=== PATIENT | female | born 1985 | race Caucasian/White ===

== ENCOUNTER → 2016-12-03 | Outpatient (CLI) | payer BC ==
[~2016-12-03] MED LIST: CHOL20009; CYNI1000 IM; PRENTAB26 PO
== END | disposition home or self-care (01) ==
LOC: C.PAPS 12:05
PROVIDERS: ATTEND Obstetrics & Gynecology
DX: Z01.419 Encounter for gynecological examination (general) (routine) without abnormal findings (principal)

== ENCOUNTER 2019-12-02 12:15 | Inpatient (IN) ==
[2019-12-02] MEDS ORDERED: LACTATED RINGER'S 1,000 ML IV PRN (12:25)
[2019-12-02] MEDS ORDERED: OXYTOCIN 30 UNITS/500 ML BAG IV PRN ×3 (12:25→17:53)
--- NOTE | 2019-12-02 12:33 | History & Physical Report ---
Date of Service December 02, 2019 Assessment & Plan (1) Prolonged , antepartum: -Patient in active labor -Tracing category 2 with accelerations and variability's -Patient desires an epidural -Anesthesia notified -Anticipate vaginal delivery History of Present Illness Chief Complaint: Labor check Primary Care Provider: NO PCP The patient is a 34-year-old 2 para 1 with an EDC of 24 November, at 41 weeks gestational age, who presents for labor check. Patient states the contractions began at approximately 1030 this morning. She denies rupture of membranes or vaginal bleeding. The patient has had a benign course. Her blood type is A+, antibody negative, rubella immune, hepatitis B negative, she declined all genetic scr eening, she had a normal 1 hour Glucola x2, and a negative third trimester beta strep culture. Allergies Allergy/AdvReac Type Severity Reaction Status Date / Time No Known Drug Allergies Allergy Unknown Verified 12/02/19 12:28 Patient History Medical History (Updated 12/02/19 @ 12:35 by Sal Kenney Jr, MD, FACOG) Encounter for anatomic survey Varicella Surgical History (Updated 05/19/19 @ 11:12 by Sal Kenney Jr, MD, FACOG) History of tonsillectomy (Resolved) Family History (Updated 04/10/19 @ 14:11 by Valerie Cohen) Grandmother (Maternal) Hypertension Grandfather (Maternal) Hypertension Grandmother (Paternal) Hypertension Aunt Thyroid disease Other No significant family history Social History (Updated 04/10/19 @ 14:13 by Valerie Cohen) Preferred Language: Ivorian Communication Ability: Effective Beliefs That Will Affect Care: None marital status: marital status details: Dheeraj Sol (30) [phone] Current Living Situation: Spouse and Family Current Living Situation Comment: 2 dogs current occupational status: employed 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 [place] Other Information That Helps Us Care for You: No Feels Safe at Home: Yes Smoking Status: Never smoker Hx Alcohol Use: No Hx Substance Use: No Physical Exam Constitutional: WD/WN, vitals as above Respiratory: Auscultation: lungs clear to auscultation bilaterally Cardiovascular: RRR, no murmur, no edema Extremities: no calf tenderness Gastrointestinal (Abdomen): Gravid, vertex, positive heart tones, estimated weight of 8 pounds Genitourinary: Cervix: 6 cm / 90%/0 station Results & Data Vital Signs (Past 12 Hours) Vital Signs Pulse BP 12/02/19 12:23 74 136/74 Coding Level of Care Code None Diagnoses Prolonged , antepartum O48.1
[2019-12-02 12:41] LABS: Hematocrit (blood only) 34.5 % (37-47); Hemoglobin 11.4 g/dL (12.0-16.0); Mean Corpuscular Hemoglobin 27.4 pg (25-34); Mean Corpuscular Volume 82.9 fL (80-100); Mean Platelet Volume 9.8 fL (7.4-10.4); Platelet Count 321 K/uL (130-400); RDW Coefficient of Variation 14.5 % (11.5-14.5); RDW Standard Deviation 43.9 fL (36.4-46.3); Red Blood Count 4.16 M/uL (4.2-5.4); White Blood Count 11.08 K/uL (4.8-10.8)
[2019-12-02] MEDS ORDERED: ePHEDrine sulfate 50 MG/ML AMP ONE (13:02)
[2019-12-02] MEDS ORDERED: BUPIVACAINE 0.25% 30 ML VIAL ONE (13:02)
[2019-12-02] MEDS ORDERED: fentaNYL citrate 100 MCG/2 ML VIAL ONE (13:03)
[2019-12-02] MEDS ORDERED: fentaNYL 2MCG/ML ROPIV 1.25MG/ML 100 ML BAG EPI ONE (13:03)
--- NOTE | 2019-12-02 13:21 | Anesthesiology Consultation ---
Date of Service December 02, 2019 Assessment & Plan (1) Encounter for pre-operative examination: Chart Review Chart Review: Patient NOT seen in Pre Admission Testing and Acceptable Risk for Labor Epidural Consults Requested none ASA ASA2 Proposed Anesthesia Anesthesia Type: Labor Epidural Risk / Benefits Reviewed With: PT / POA / Parent / Guardian, Accepts Plan and Informed Consent Obtained History Height/Weight Height: 5 ft 9 in Weight: 93.894 kg Allergies Allergy/AdvReac Type Severity Reaction Status Date / Time No Known Drug Allergies Allergy Unknown Verified 12/02/19 12:28 Medications Home Medications Medication Instructions Recorded Confirmed Last Taken mecobalamin (vitamin B12) [B12 1,000 mcg PO DAILY 12/02/19 12/02/19 12/01/19 Active] vit-iron fum-folic ac 1 tab PO DAILY 12/02/19 12/02/19 12/01/19 [ Vitamin] vitamin D3-folic acid 1 tab PO DAILY 12/02/19 12/02/19 12/01/19 NPO Date Last Intake of Fluids: 12/02/19 Time Last Intake of Fluids: 13:44 Date Last Intake of Solids: 12/02/19 Time Last Intake of Solids: 08:30 Past Medical History Medical History Encounter for anatomic survey Varicella Exercise / Class Metabolic Activity II 4-5 Yardwork/Stairs/Walk up hill Past Family History Family History Grandmother (Maternal) Hypertension Grandfather (Maternal) Hypertension Grandmother (Paternal) Hypertension Aunt Thyroid disease Other No significant family history Past Surgical History Surgical History History of tonsillectomy (Resolved) Past Anesthesia History No Hx of Anesthesia Complications History of PONV No Hx of PONV Social History Smoking Status: Never smoker Hx Alcohol Use: No Hx Substance Use: No Review of Systems Patient denies history of abnormal bleeding or bleeding disorder. Patient denies active use of anticoagulants other than low dose aspirin. Patient denies active symptoms of GERD. Negative for chest pain or shortness of breath. Patient denies numbness, tingling or weakness in lower extremities. Physical Exam Vital Signs Last Vital Signs Temp 36.6 C 12/02/19 12:40 Pulse 74 12/02/19 12:23 Resp 18 12/02/19 12:40 BP 136/74 12/02/19 12:23 Constitutional not obese (Gravid uterus) ENMT Mouth: no TMJ abnormality and oral opening not small Thyromental Distance: > or= 3.5 Finger Breadths Mallampati Class: I Neck normal visual inspection; neck extension not limited Respiratory normal respiratory effort Auscultation: lungs clear to auscultation bilaterally Cardiovascular Rate/Rhythm: regular rate and regular rhythm Heart Sounds: no murmur Neurologic moves all extremities Motor/Sensory: no sensory deficit Psychiatric Orientation: alert and oriented x 3 Testing Laboratory Results 12/02/19 12:31
[2019-12-02] MEDS ORDERED: NALOXONE HCL 0.4 MG/1 ML VIAL/CARP IV PRN (13:56)
[2019-12-02] MEDS ORDERED: ePHEDrine sulfate 50 MG/ML AMP IV PRN (13:56)
[2019-12-02] MEDS ORDERED: NALOXONE HCL 1 MG in SODIUM CHLORIDE 0.9% 1000ML 1,000 ML IV PRN (13:56)
[2019-12-02] MEDS ORDERED: NALBUPHINE HCL INJ 10 MG/ML AMP IV PRN (13:56)
[2019-12-02] MEDS ORDERED: DiphenhydrAMINE HCL 50 MG/ML VIAL IV PRN (13:56)
[2019-12-02] MEDS ORDERED: ONDANSETRON INJ 2 MG/ML 2 ML VIAL IV PRN (13:56)
[2019-12-02] MEDS ORDERED: fentaNYL 2MCG/ML ROPIV 1.25MG/ML 100 ML BAG EPI PRN (13:56)
--- NOTE | 2019-12-02 14:08 | Labor Progress Brief Note ---
Date of Service December 02, 2019 Subjective Reason For Note: Routine Evaluation Assessment & Plan (1) Prolonged , antepartum: - tracing Cat II, moderate variability with accels - pt comfortable with epidural - no cervical change since admission - will start pitocin - discussed with patient - all questions answered Physical Exam Genitourinary: Cervix: no change, AROM clear Results & Data Vital Signs (Past 12 Hours) Vital Signs Temp Pulse Resp BP Pulse Ox 12/02/19 14:02 72 99 12/02/19 13:57 71 99 12/02/19 13:54 75 135/74 12/02/19 13:52 72 139/69 99 12/02/19 13:50 71 134/76 12/02/19 13:48 72 133/83 12/02/19 13:47 82 99 12/02/19 13:46 77 130/72 12/02/19 13:44 74 123/73 12/02/19 13:42 70 133/62 98 12/02/19 13:40 140/88 12/02/19 13:38 82 135/75 12/02/19 13:37 87 99 12/02/19 13:36 80 129/82 12/02/19 13:34 81 130/76 12/02/19 13:33 70 131/84 12/02/19 13:32 66 99 12/02/19 13:27 74 99 12/02/19 13:23 112 H 92 12/02/19 13:22 106 H 97 12/02/19 12:40 97.9 F 18 12/02/19 12:23 74 136/74 Coding Level of Care Code None Diagnoses Prolonged , antepartum O48.1
--- NOTE | 2019-12-02 15:48 | Labor Progress Brief Note ---
Date of Service December 02, 2019 Subjective Reason For Note: Routine Evaluation Assessment & Plan (1) Prolonged , antepartum: - tracing Cat II -begin 2nd Stage Physical Exam Genitourinary: Cervix: complete/(+)1/LOT Results & Data Vital Signs (Past 12 Hours) Vital Signs Temp Pulse Resp BP Pulse Ox 12/02/19 15:42 128 H 100 12/02/19 15:39 90 88 L 12/02/19 15:37 67 100 12/02/19 15:32 89 100 12/02/19 15:27 80 98 12/02/19 15:26 64 129/75 12/02/19 15:22 100 H 99 12/02/19 15:17 66 98 12/02/19 15:12 76 99 12/02/19 15:11 70 130/69 12/02/19 15:07 78 99 12/02/19 15:02 90 98 12/02/19 15:00 98.2 F 16 12/02/19 14:57 74 99 12/02/19 14:56 76 129/72 12/02/19 14:52 74 99 12/02/19 14:47 70 98 12/02/19 14:42 77 111/68 99 12/02/19 14:37 66 98 12/02/19 14:32 70 97 12/02/19 14:27 67 97 12/02/19 14:26 70 112/69 12/02/19 14:22 64 99 12/02/19 14:17 68 122/75 98 12/02/19 14:12 73 99 12/02/19 14:07 79 97 12/02/19 14:02 72 99 12/02/19 13:57 71 99 12/02/19 13:54 75 135/74 12/02/19 13:52 72 139/69 99 12/02/19 13:50 71 134/76 12/02/19 13:48 72 133/83 12/02/19 13:47 82 99 12/02/19 13:46 77 130/72 12/02/19 13:44 74 123/73 12/02/19 13:42 70 133/62 98 12/02/19 13:40 140/88 12/02/19 13:38 82 135/75 12/02/19 13:37 87 99 12/02/19 13:36 80 129/82 12/02/19 13:34 81 130/76 12/02/19 13:33 70 131/84 12/02/19 13:32 66 99 12/02/19 13:27 74 99 12/02/19 13:23 112 H 92 12/02/19 13:22 106 H 97 12/02/19 12:40 97.9 F 18 12/02/19 12:23 74 136/74 Coding Level of Care Code None Diagnoses Prolonged , antepartum O48.1
--- NOTE | 2019-12-02 17:39 | Delivery Summary ---
Vaginal Delivery Summary Date of Service December 02, 2019 Vaginal Delivery Summary Findings: Viable male infant with Apgars of 8 and 9 baby delivered over a midline episiotomy cord gases cord blood samples obtained placenta with spontaneously episiotomy repaired with 4-0 and 2-0 Vicryl in routine fashion estimated blood loss 300 cc Labor note: The patient is a 34-year-old 2 para 1 with an EDC of 24 November, at 41 weeks gestational age, who presents for labor check. Patient states the contractions began at approximately 1030 this morning. She denies rupture of membranes or vaginal bleeding. The patient has had a benign course. Her blood type is A+, antibody negative, rubella immune, hepatitis B negative, she declined all genetic screening, she had a normal 1 hour Glucola x2, and a negative third trimester beta strep culture. Upon admission the patient was 6 cm dilated 90% effaced and 0 station. Tracing was category 2 with good variability and accelerations. Anesthesia was consulted and an epidural was placed. 2 hours afterwards there had been no cervical change and patient had artificial rupture membranes for clear fluid and Pitocin augmentation initiated patient progressed to full dilatation and began her second stage she pushed for a little over an hour and delivered over midline episiotomy. The patient had a pronounced perineal body from her previous delivery total length of the perineal body prior to cutting the episiotomy was approximately 6 to 8 cm. The cord was clamped and cut. Cord gases cord blood samples obtained placenta was delivered spontaneously episiotomy was repaired with 4-0 and 2-0 Vicryl in a routine fashion. After delivery the patient states that her vaginal introitus was very narrow after her first delivery. Because of the episiotomy the same incision needed to be closed and this was explained to the patient. The possible need for revision 6 weeks will be determined at her check. All questions answered of the patient.
[2019-12-02 17:41] LABS: Base Excess Cord Arterial Bld -6.9 mEq/L (-9-1.8); CO2 Cord Arterial Blood 58 mmHg (39.1-73.5); HCO3 Cord Arterial Blood 22 mmol/L (19.7-28.5); PO2 Cord Arterial Blood 19 mmHg (4.1-31.7)
[2019-12-02 17:45] LABS: Base Excess Cord Venous Blood -3.8 mEq/L (-7.7-1.9); Cord Venous Blood HCO3 20 mmol/L (18.4-26.8); Cord Venous Blood PCO2 34 mmHg (30.4-57.2); Cord Venous Blood PO2 37 mmHg (14.1-43.3); Cord Venous Blood pH 7.39 (7.20-7.44)
[2019-12-02 17:46] LABS: Oxygen Sat Cord Arterial Blood < 60.0 % (<60)
[2019-12-02] MEDS ORDERED: HYDROCORTISONE ACETATE 25 MG SUPP PR PRN (17:53)
[2019-12-02] MEDS ORDERED: BENZOCAINE 20% AER SPR 82.5 GM CAN EXT PRN (17:53)
[2019-12-02] MEDS ORDERED: SUPERCREAM 0.870% 15 GM JAR EXT PRN (17:53)
[2019-12-02] MEDS ORDERED: DIPHTHERIA/TETANUS/PERTUSSIS 0.5 ML SYR/VIAL IM ONE (17:53)
--- NOTE | 2019-12-02 18:06 | Anesthesia Procedure Note ---
Date of Service December 02, 2019 Anesthesia Post Epidural Note Vital Signs Vital Signs: Temp Pulse Resp BP Pulse Ox 36.6 C 101 H 18 115/67 97 12/02/19 16:15 12/02/19 17:41 12/02/19 16:15 12/02/19 17:41 12/02/19 17:22 Pain Intensity Abdomen: Pain Intensity: 1 Notes Mental Status: alert / awake / arousable and participated in evaluation Nausea / Vomiting: adequately controlled Pain: adequately controlled Airway Patency, RR, SpO2: stable & adequate BP & HR: stable & adequate Hydration State: stable & adequate Neuraxial Anesthesia: was administered and sensory block is resolving Anesthetic Complications: no major complications apparent and Pt Satisfied with anesthetic care Epidural: Removed without complications and With tip intact
[2019-12-02] MEDS: IBUPROFEN 600 MG TAB PO PRN ×2 (18:17→22:10)
[2019-12-02] MEDS: DOCUSATE SODIUM 100 MG CAP PO SCH (21:01)
[2019-12-02] MEDS: ACETAMINOPHEN 325 MG TAB PO PRN (23:04)
[2019-12-03] MEDS: IBUPROFEN 600 MG TAB PO PRN ×5 (02:39→23:02)
[2019-12-03] MEDS: ACETAMINOPHEN W/CODEINE #3 1 TAB PO PRN ×3 (04:47→14:44)
[2019-12-03] MEDS: DOCUSATE SODIUM 100 MG CAP PO SCH ×2 (07:38→20:30)
[2019-12-03] MEDS: PRENATAL VITAMIN 1 TAB PO SCH (07:42)
[2019-12-03] MEDS: FERROUS SULFATE 325 MG TAB PO SCH (07:42)
--- NOTE | 2019-12-03 08:28 | Obstetrical Progress Note ---
Date of Service December 03, 2019 Assessment & Plan (1) Prolonged , antepartum: - having "aftercramp" pain - discussed etiology and strategies - routine care Subjective Ambulation: ambulating normally Feeding Type:: breast feeding Physical Exam Constitutional WD/WN, vitals as above Gastrointestinal (Abdomen) Fundus firm below umbilicus Musculoskeletal No deep calf tenderness Results & Data Vital Signs (Past 12 Hours) Vital Signs Temp Pulse Resp BP Pulse Ox 12/03/19 03:35 98.1 F 73 18 120/85 98 12/02/19 23:00 97.9 F 71 18 114/76 97 12/02/19 20:40 98.4 F 98 H 18 109/68 97
[2019-12-03] MEDS ORDERED: bisacodyL 5 MG TABEC PO SCH (20:00)
[2019-12-03] MEDS: ACETAMINOPHEN 325 MG TAB PO PRN (21:27)
[2019-12-04] MEDS: IBUPROFEN 600 MG TAB PO PRN ×2 (02:52→07:33)
[2019-12-04 06:01] LABS: Hemoglobin 9.2 g/dL (12.0-16.0)
--- NOTE | 2019-12-04 06:55 | Obstetrical Progress Note ---
Date of Service December 04, 2019 Assessment & Plan (1) Prolonged , antepartum: - still having after cramps - ready for d/c - instructions/Rx given - f/u in 6 weeks Subjective Ambulation: ambulating normally Diet Tolerance:: regular diet Feeding Type:: breast feeding Physical Exam Constitutional WD/WN, vitals as above Gastrointestinal (Abdomen) Fundus firm below umbilicus Musculoskeletal No deep calf tenderness Results & Data Vital Signs (Past 12 Hours) Vital Signs Temp Pulse Resp BP Pulse Ox 12/03/19 23:15 97.7 F 82 18 107/71 96 12/03/19 20:35 98.4 F 80 16 115/77 97
[2019-12-04] MEDS: PRENATAL VITAMIN 1 TAB PO SCH (07:32)
[2019-12-04] MEDS: FERROUS SULFATE 325 MG TAB PO SCH (07:33)
[2019-12-04] MEDS: DOCUSATE SODIUM 100 MG CAP PO SCH (07:33)
== END 2019-12-04 10:30 | disposition home or self-care (01) | DRG 807 ==
LOC: OPB 12:15 → 4S1 12:16 → 4S2 20:38